=== PATIENT | male | born 1975 | race Caucasian/White ===

== ENCOUNTER 2017-02-02 11:34 | Day surgery (SDC) | payer BC ==
--- NOTE | ~2017-02-02 | EGD ---
EGD REPORT [facility] [address] [place] [address] NAME: GAURAV DHALIWAL : [birth year] STATUS : REG [facility] [place] PAT#: [id number] AGE: 41 ADM/REG DATE : 02/02/17 MR#: [id number] REPORT SERV DATE: 02/02/17 DICTATED BY: DORYS FONTANEZ DATE: 02/02/17 REPORT STATUS : Draft [facility]: [facility] DATE: 02/02/17 Endoscopy Center Patient Name: Gaurav Dhaliwal Date of : 1975 Attending MD: DORYS FONTANEZ MD Procedure Date No Time: 02/02/2017 Procedure: Colonoscopy Indications: This patient was referred for a therapeutic procedure - foreign object in the colon Medicines: Propofol per Anesthesia Complications: No immediate complications. Procedure: After I obtained informed consent, the scope was passed under direct vision. Throughout the procedure, the patient's blood pressure, pulse, and oxygen saturations were monitored continuously. The PCF [id number] was introduced through the anus and advanced to 10 cm into the ileum. The colonoscopy was performed without difficulty. The patient tolerated the procedure well. The quality of the bowel preparation was good. Findings: The perianal and digital rectal examinations were normal. Internal hemorrhoids were found during retroflexion and were Grade I (internal hemorrhoids that do not prolapse). The exam was otherwise without abnormality. The terminal ileum appeared normal. Impression: - Internal hemorrhoids. - The examination was otherwise normal. - The examined portion of the ileum was normal. Recommendation: - Likely spontaneously passed the object. - Patient has a contact number available for emergencies. The signs and symptoms of potential delayed complications were discussed with the patient. Return to normal activities tomorrow. Written discharge instructions were provided to the patient. - Regular diet. - Continue present medications. - Repeat colonoscopy in 10 years for screening purposes. Procedure Code(s): --- Professional --- 11819, Colonoscopy, flexible, proximal to splenic flexure; diagnostic, with or without collection of specimen(s) by brushing or washing, with or without EGD REPORT [facility] [address] [place] [address] NAME: GAURAV DHALIWAL : [birth year] STATUS : REG [facility]#: [id number] AGE: 41 ADM/REG DATE : 02/02/17 MR#: [id number] REPORT SERV DATE: 02/02/17 DICTATED BY: DORYS FONTANEZ. DATE: 02/02/17 REPORT STATUS : Draft TRANSCRIBED BY: [employer] DATE: 02/02/17 colon decompression (separate procedure) Diagnosis Code(s): --- Professional --- K64.0, First degree hemorrhoids CPT copyright 2013 [employer]. All rights reserved. The codes documented in this report are preliminary and upon grants specialist review may be revised to meet current compliance requirements. DORYS FONTANEZ MD 02/02/2017 1:39 PM This report has been signed electronically. Number of Addenda: 0 Note Initiated On: 02/02/2017 1:18 PM Scope Withdrawal Time 0 hours 10 minutes 34 seconds [address] [place] [address]
[~2017-02-02 11:34] MED LIST: IBU400 PO; MEDS
== END 2017-02-02 23:59 | disposition home or self-care (01) ==
LOC: DMU 11:34
PROVIDERS: Internal Medicine Gastroenterology
PROC: 0DJD8ZZ Inspection of Lower Intestinal Tract, Via Natural or Artificial Opening Endoscopic (ICD-10-PCS; principal; 2017-02-02 13:30)
DX: T18.5XXA Foreign body in anus and rectum, initial encounter (principal); K46.9 Unspecified abdominal hernia without obstruction or gangrene; K64.0 First degree hemorrhoids; Z98.890 Other specified postprocedural states; Z87.891 Personal history of nicotine dependence